=== PATIENT | female | born 1960 ===

== ENCOUNTER → 2024-11-13 | Outpatient (CLI) | payer OTHER ==
[2024-11-20 11:27] LABS: HPV HIGH RISK BY TMA Not Detected; HPV SOURCE Cervical
== END ==
LOC: LAB 14:31 → LAB SHORT 14:31
PROVIDERS: Family Medicine
DX: Z01.419 Encounter for gynecological examination (general) (routine) without abnormal findings (principal)
CPT/HCPCS: 87624; G0123

== ENCOUNTER 2024-11-28 21:59 | Emergency (ER) | payer OTHER ==
[~2024-11-28] VITALS: Ht 167.6 cm; Wt 72.6 kg
[2024-11-29] MEDS ORDERED: Ibuprofen600 MG PO (01:42)
== END 2024-11-29 01:46 | disposition home or self-care (01) ==
LOC: ER 21:59
DX: K08.89 Other specified disorders of teeth and supporting structures (principal); R00.2 Palpitations; F41.9 Anxiety disorder, unspecified; Z59.89 Other problems related to housing and economic circumstances; Z88.5 Allergy status to narcotic agent
CPT/HCPCS: 99282-25